=== PATIENT | female | born 1950 | race Caucasian/White ===

== ENCOUNTER → 2016-09-17 08:32 | Outpatient (CLI) | payer MEDICARE, MEDICAID ==
[2015-07-10 12:55] VITALS: BMI 22.8
[~2016-09-17 08:32] MED LIST: ASCORBIC ACID500 MG PO; BAYER CHEWABLE81 MG PO; CALCIUM 500 + D1 TAB PO; CYTOTEC200 MCG PO; FISH OIL 1,0001 CA1 PO; FLORASTOR250 MG PO; IMDUR30 MG OR; IMDUR60 MG; ISOSORBIDE MONO30 M1 PO; LEVAQUIN500 MG PO; LOTENSIN HCT 101 TAB PO; NEXIUM40 MG PO; NIASPAN1000 MG PO; NITROSTAT0.4 MG SL; NORVASC5 MG PO; OCUVITE TABLET1 TA1 PO; PLAVIX75 MG PO; PRAVACHOL40 MG PO; RANEXA1000 MG PO; RANEXA500 MG PO; SINGULAIR10 MG PO; TENORMIN25 MG PO; TOPROL XL25 MG PO; TOPROL XL50 MG PO; TRIGLIDE160 MG PO
== END | disposition home or self-care (01) ==
LOC: D.CT 08:00
DX: M79.604 Pain in right leg (principal)

== ENCOUNTER 2017-01-03 17:44 | Emergency (ER) | payer MEDICARE, MEDICAID ==
[2015-07-10 12:55] VITALS: BMI 22.8
[2017-01-03 18:27] LABS: BASOPHILS 0.3 % (0-2); EOSINOPHILS 0.4 % (0-7); HEMATOCRIT 36.9 % (36.0-48.0); HEMOGLOBIN 12.1 g/dL (12-16); IMMATURE GRANULOCYTES 0.2 % (0-5); LYMPHOCYTES 18.3 % (15-50); MCH 27.8 pg (26.0-34.0); MCHC 32.8 g/dL (31.0-37.0); MCV 84.8 fL (80.0-100.0); MEAN PLATELET VOLUME 10.4 fL (7.4-10.4); MONOCYTES 8.4 % (2-11); NEUTROPHILS 72.4 % (40-80); PLATELET COUNT 301 10x3/uL (130-400); RBC 4.35 10x6/uL (4.00-5.40); WBC 10.9 10x3/uL (4.8-10.8)
[2017-01-03 18:33] LABS: INR 1.02 (0.85-1.17); PROTIME 13.3 SECONDS (11.6-15.0)
[2017-01-03 18:34] LABS: APTT 40.2 SECONDS (22.8-39.4)
[2017-01-03 18:37] LABS: ALBUMIN 3.3 g/dL (3.4-5.0); ALKALINE PHOSPHATASE 148 U/L (46-116); ALT (SGPT) 17 U/L (10-68); BILIRUBIN - TOTAL 0.37 mg/dL (0.2-1.3); CALC OSMOLALITY 265 mosm/kg (275-300); CALCIUM 9.5 mg/dL (8.5-10.1); CARBON DIOXIDE 22.3 mmol/L (21.0-32.0); CHLORIDE - SERUM 100 mmol/L (98-107); CREATININE - SERUM 0.7 mg/dL (0.6-1.3); GLUCOSE 111 mg/dL (74-106); POTASSIUM - SERUM 3.5 mmol/L (3.5-5.1); SODIUM 133 mmol/L (136-145); UREA NITROGEN 9 mg/dL (7-18); eGFR NON AFRICAN AMERICAN 88 mL/min (90-120)
[2017-01-03 18:48] LABS: D-DIMER-QUANTITATIVE 2.59 ug/mLFEU (0.20-0.54)
[2017-01-03 18:50] LABS: CKMB 0.5 U/L (0.0-3.6); CREATINE KINASE 39 UL (21-215); PRO BNP 137 pg/mL (0-125)
[2017-01-03 18:51] LABS: TROPONIN-I < 0.017 ng/mL (0.000-0.060)
== END 2017-01-03 23:23 | disposition home or self-care (01) ==
LOC: D.ER 17:44
PROVIDERS: Family Medicine
DX: R07.9 Chest pain, unspecified (principal); K21.9 Gastro-esophageal reflux disease without esophagitis; I10 Essential (primary) hypertension; F17.200 Nicotine dependence, unspecified, uncomplicated; R00.0 Tachycardia, unspecified

== ENCOUNTER → 2017-11-19 17:36 | Outpatient (CLI) | payer MEDICARE, MEDICAID ==
[2015-07-10 12:55] VITALS: BMI 22.8
== END | disposition home or self-care (01) ==
LOC: D.MAMMO 11:15
DX: Z12.31 Encounter for screening mammogram for malignant neoplasm of breast (principal)

== ENCOUNTER → 2018-04-29 09:00 | Day surgery (SDC) | payer MEDICARE, MEDICAID ==
[2018-04-28 10:03] LABS: HEMATOCRIT 39.5 % (36.0-48.0); MCH 29.4 pg (26.0-34.0); MCHC 32.9 g/dL (31.0-37.0); MCV 89.4 fL (80.0-100.0); MEAN PLATELET VOLUME 9.6 fL (7.4-10.4); RBC 4.42 10x6/uL (4.00-5.40); RDW 13.7 % (11.5-14.5); WBC 11.4 10x3/uL (4.8-10.8)
[2018-04-28 10:10] LABS: CALC OSMOLALITY 275 mosm/kg (275-300); CALCIUM 9.2 mg/dL (8.5-10.1); CARBON DIOXIDE 26.6 mmol/L (21.0-32.0); CHLORIDE - SERUM 102 mmol/L (98-107); CREATININE - SERUM 0.8 mg/dL (0.6-1.3); GLUCOSE 103 mg/dL (74-106); POTASSIUM - SERUM 3.7 mmol/L (3.5-5.1); SODIUM 138 mmol/L (136-145); UREA NITROGEN 12 mg/dL (7-18); eGFR NON AFRICAN AMERICAN 75 mL/min (90-120)
[~2018-04-29] VITALS: Ht 160 cm; Wt 61.2 kg
[~2018-04-29 09:00] MED LIST changes: +BREO ELLIPTA 11 EACH INH; +CHANTIX 1 MG TAB1 MG PO; +CYCLOBENZAPRINE10 MG PO; +HYDROCODON-ACE1 EA10 PO; +HYDROCODONE; +LOTENSIN HCT 21 EACH PO; +NEURONTIN 300300 MG PO; +REQUIP0.25 MG PO; +VENTOLIN INH
[2018-04-29 09:38] VITALS: BP 133/75; Ht 160 cm; Wt 61.2 kg
--- NOTE | 2018-04-29 14:26 | OP ---
PATIENT NAME: NOEMY BRYANT MEDICAL RECORD: [id number] :49 LOCATION:[facility] ADMISSION DATE: SURGEON: MARY JOSHI MD DATE OF OPERATION: 04/29/2018 PREOPERATIVE DIAGNOSES: Impingement syndrome of the left shoulder with acromioclavicular arthritis and rotator cuff tear. POSTOPERATIVE DIAGNOSES: Impingement syndrome and acromioclavicular arthritis of the left shoulder. PROCEDURES: 1. Arthroscopic distal clavicle excision under separate incision -- 1 cm. 2. Arthroscopic subacromial decompression with acromioplasty and bursectomy. SURGEON: Mary Joshi MD ANESTHESIA: General. INTRAOPERATIVE COMPLICATIONS: None. SUMMARY OF PATHOLOGIC FINDINGS: The patient was indeed found to have substantial impingement with acromioclavicular arthritis. The glenohumeral joint itself was in relatively good condition. No rotator cuff tearing was seen from the articular side and only superficial abrasion was seen on the superficial side, excoriation of the coracoacromial ligament was noted. OPERATIVE SUMMARY IN DETAIL: After obtaining the appropriate preoperative orthopedic surgery consent as well as anesthetic consultation, evaluation and clearance, the patient was brought to the operating room and placed on the operating table in supine position. After general laryngeal mask administered, the patient was placed in the right lateral decubitus position. All pressure points were well padded to include down leg peroneal pad as well as axillary roll. The patient was held firmly to the operating table using vacuum pack suction system. Left upper extremity and shoulder were then prepped and draped in a routine sterile fashion. The arm was held in the Arthrex traction boom at 30 degrees of forward flexion, 30 degrees of abduction, and 10 pounds of traction laterally. Arthroscopy was established in the glenohumeral joint from a posterior portal. Anterior portal was established in the anterior safe interval. Diagnostic arthroscopy showed the patient have relatively well maintained glenohumeral joint without evidence of severe cellulitis labral tearing or biceps tendonitis. Attention was then turned to the subacromial space. Accessory lateral portal was created through which [place] tissue surface ablation system was utilized to denude the undersurface of the acromion of all soft tissue elements and release the coracoacromial ligament. Having completed this, a 5.0 barrel bur was used to perform acromioplasty at the level of acromioclavicular joint. Next, attention was turned to the distal clavicle, separate arthroscopic portal anteriorly was utilized to excise the distal clavicle 1 cm with a 5.0 barrel bur. Having completed this, all bursa was taken down anteriorly, laterally, posteriorly as well as superiorly. Rotator cuff was examined and found to be without tearing. Having completed this, arthroscopy portals were closed in routine interrupted fashion using 4-0 Prolene. Sterile dressings were applied. The patient was awakened and taken to the recovery room in stable condition. All final needle and sponge counts were correct. OPERATIVE REPORT [id number] NOEMY BRYANT [place]GO TRANSINT:[id number] Voice Confirmation ID: [id number] DOCUMENT ID: [id number] ADI JEAN, MARY BEYER at 1426 CC: [id number] DICTATION DATE: 04/29/18 1209 DESKTOP SUPPORT SPECIALIST: 04/29/18 1226 [facility] [place] [id number] [place] [id number]
== END | disposition home or self-care (01) ==
LOC: D.OPS 09:00 → D.PAN 12:00 → D.OPS 13:15
PROVIDERS: Anesthesiology
DX: M75.42 Impingement syndrome of left shoulder (principal); M13.812 Other specified arthritis, left shoulder; J44.9 Chronic obstructive pulmonary disease, unspecified; I25.10 Atherosclerotic heart disease of native coronary artery without angina pectoris; K21.9 Gastro-esophageal reflux disease without esophagitis; I10 Essential (primary) hypertension; E78.00 Pure hypercholesterolemia, unspecified; M81.0 Age-related osteoporosis without current pathological fracture; Z87.891 Personal history of nicotine dependence; Z88.5 Allergy status to narcotic agent; Z79.82 Long term (current) use of aspirin; Z79.2 Long term (current) use of antibiotics; Z79.02 Long term (current) use of antithrombotics/antiplatelets; Z79.891 Long term (current) use of opiate analgesic; Z79.52 Long term (current) use of systemic steroids; Z01.812 Encounter for preprocedural laboratory examination

== ENCOUNTER 2018-07-29 08:50 | Day surgery (SDC) | payer MEDICARE, MEDICAID ==
[2018-07-27 10:59] LABS: HEMATOCRIT 40.6 % (36.0-48.0); HEMOGLOBIN 13.4 g/dL (12-16); MCH 29.2 pg (26.0-34.0); MCV 88.5 fL (80.0-100.0); MEAN PLATELET VOLUME 9.5 fL (7.4-10.4); RBC 4.59 10x6/uL (4.00-5.40); RDW 13.4 % (11.5-14.5); WBC 8.4 10x3/uL (4.8-10.8)
[~2018-07-29] VITALS: Ht 160 cm; Wt 59.0 kg
[~2018-07-29 08:50] MED LIST changes: +ALBUTEROL SULF8.5 GM INH; +ALENDRONATE SOD40 MG PO; -HYDROCODONE; +VALIUM10 MG PO
[2018-07-29] MEDS ORDERED: MYSOLINE 50 MG50 MG PO (10:17)
[2018-07-29] MEDS ORDERED: ALENDRONATE TAB 70M PO (10:17)
[2018-07-29] MEDS ORDERED: CYTOTEC200 MCG PO (10:18)
[2018-07-29 10:19] VITALS: BP 123/56; Ht 160 cm; Wt 59.0 kg
[2018-07-29] MEDS ORDERED: HYDROCODON-ACE1 EA10 PO (12:01)
--- NOTE | 2018-07-29 14:51 | NUR ---
1330 IV DC'D. CATHETER INTACT. NO BLEEDING AT SITE. BANDAID APPLIED.
--- NOTE | 2018-07-29 17:13 | OP ---
PATIENT NAME: NOEMY BRYANT MEDICAL RECORD: [id number] :49 LOCATION:[facility] ADMISSION DATE: SURGEON: MARY JOSHI MD DATE OF OPERATION: 07/29/2018 PREOPERATIVE DIAGNOSES: 1. Severe biceps tendinitis - recalcitrant. 2. Recurrent impingement syndrome. POSTOPERATIVE DIAGNOSES: 1. Severe biceps tendinitis - recalcitrant. 2. Recurrent impingement syndrome. PROCEDURE: 1. Arthroscopic biceps tenotomy of the left shoulder. 2. Arthroscopic subacromial decompression with acromioplasty and bursectomy. SURGEON: Mary Joshi MD ANESTHESIA: General. INTRAOPERATIVE COMPLICATIONS: None. SUMMARY OF PATHOLOGIC FINDINGS: The patient had substantial recurrent synovitis. Thusly, the acromion was taken up higher, rotator cuff attritional tearing was noted, but no full thickness rotator cuff tear was seen. The patient did have severe biceps tendinitis as predicted for the preoperative MRI. OPERATIVE SUMMARY IN DETAIL: After obtaining the appropriate preoperative orthopedic surgery consent as well as anesthetic consultation, evaluation and clearance, the patient was brought to the operating room and placed on the operating table in supine position. After general laryngeal mask airway was administered, the patient was placed in right lateral decubitus position. All pressure points were well-padded to include down leg peroneal pad as well as the axillary roll. The patient was held firmly to the operating table using the vacuum pack suction system. Left upper extremity and shoulder were then prepped and draped in routine sterile fashion. The arm was held in the Arthrex traction boom in 30 degrees of forward flexion, 30 degrees of abduction, 10 pounds of traction laterally. Arthroscopy was established in the glenohumeral joint from the consumer lender portal. Anterior portal was established from the anterior safe interval. 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 The [place] tissue ablation system was utilized to perform a biceps tenotomy at the bicipital labral junction. Having completed this, attention turned to subacromial space. While in the subacromial space, the arthroscopic tissue ablation system was utilized to release the reformed coracoacromial ligament, which was quite thickened, somewhat strangely enough and the undersurface of the acromion was denuded of all soft tissue elements and then a subacromial decompression was performed at the level of the acromioclavicular joint, which had already been taken down, the AC joint that is. All bursa was taken down. The rotator cuff was thoroughly inspected. There were some attritional tearing of the rotator cuff fibers; however, none of it was full thickness. Having completed this, arthroscopy portals were closed in routine interrupted fashion using 4-0 Prolene. Sterile dressings were applied. OPERATIVE REPORT [id number] NOEMY BRYANT The patient was awakened, taken to recovery room in stable condition. All final needle and sponge counts were correct. TRANSINT:[id number] Voice Confirmation ID: [id number] DOCUMENT ID: [id number] ADI JEAN, MARY BEYER at 1713 CC: [id number] DICTATION DATE: 07/29/18 1204 DIRECTOR OF VIDEO ANALYTICS: 07/29/18 1314 [facility] 07/29/18 [place] [id number] [place] [address]
== END 2018-07-29 14:15 | disposition home or self-care (01) ==
LOC: D.OPS 08:50 → D.PAN 14:50 → D.OPS 14:50 → D.PAN 17:15
PROVIDERS: Anesthesiology; ATTEND Orthopaedic Surgery
DX: M75.22 Bicipital tendinitis, left shoulder (principal); M75.42 Impingement syndrome of left shoulder; M65.812 Other synovitis and tenosynovitis, left shoulder; Z01.812 Encounter for preprocedural laboratory examination

== ENCOUNTER 2018-11-29 10:08 | Emergency (ER) | payer MEDICARE, MEDICAID ==
[~2018-11-29] VITALS: Ht 160 cm; Wt 63.6 kg
[~2018-11-29 10:08] MED LIST changes: +ALENDRONATE TAB 70M PO; +MYSOLINE 50 MG50 MG PO
[2018-11-29 10:09] VITALS: Ht 160 cm; Wt 63.6 kg
[2018-11-29] MEDS ORDERED: CYCLOBENZAPRINE10 MG PO (10:11)
[2018-11-29] MEDS ORDERED: VOLTAREN75 MG PO (11:16)
[2018-11-29] MEDS ORDERED: BACLOFEN20 M1 PO (11:16)
[2018-11-29 11:43] VITALS: BP 142/88
== END 2018-11-29 12:10 | disposition home or self-care (01) ==
LOC: D.ER 10:08
DX: M54.5 Low back pain (principal)

== ENCOUNTER → 2018-12-10 20:52 | Outpatient (CLI) | payer MEDICARE, MEDICAID ==
[2018-11-29 10:09] VITALS: BMI 24.8
[~2018-12-10 20:52] MED LIST changes: +BACLOFEN20 M1 PO; +VOLTAREN75 MG PO
[2018-12-10 21:06] LABS: APPEARANCE SL CLDY (CLEAR); BILIRUBIN NEGATIVE (NEGATIVE); COLOR YELLOW (YELLOW); GLUCOSE NEGATIVE (NEGATIVE); KETONE NEGATIVE (NEGATIVE); NITRITE NEGATIVE (NEGATIVE); PROTEIN TRACE mg/dL (NEGATIVE); UROBILINOGEN NORMAL (NORMAL)
[2018-12-10 21:07] LABS: BACTERIA FEW /hpf (NONE SEEN); RED CELLS - URINE 0-5 /hpf (0-5)
== END | disposition home or self-care (01) ==
LOC: D.LABREF 20:52
PROVIDERS: ATTEND Family Medicine
DX: N39.0 Urinary tract infection, site not specified (principal); R10.9 Unspecified abdominal pain

== ENCOUNTER → 2019-04-15 15:53 | Outpatient (CLI) | payer MEDICARE, MEDICAID ==
[2018-11-29 10:09] VITALS: BMI 24.8
== END | disposition home or self-care (01) ==
LOC: D.LABREF 15:53
PROVIDERS: ATTEND Urology
DX: R31.9 Hematuria, unspecified (principal)

== ENCOUNTER → 2019-04-28 07:50 | Outpatient (CLI) | payer MEDICARE, MEDICAID ==
[2018-11-29 10:09] VITALS: BMI 24.8
[~2019-04-28 07:50] MED LIST changes: +ALENDRONATE PO; -ALENDRONATE SOD40 MG PO; +AMBIEN10 MG PO; +Fosamax; +MEDROL DOSE PACK4 MG PO; +PROTONIX40 MG PO; +STERAPRED DS 1010 MG PO; +VIBRAMYCIN 100100 MG PO
== END | disposition home or self-care (01) ==
LOC: D.CT 07:50
PROVIDERS: ATTEND Urology
DX: R31.21 Asymptomatic microscopic hematuria (principal)

== ENCOUNTER 2019-06-07 05:10 | Day surgery (SDC) | payer MEDICARE, MEDICAID ==
[~2019-06-07] VITALS: Ht 160 cm; Wt 62.1 kg
[2019-06-07 05:48] LABS: HEMATOCRIT 42.8 % (36.0-48.0); MCHC 32.7 g/dL (31.0-37.0); MCV 88.6 fL (80.0-100.0); MEAN PLATELET VOLUME 9.7 fL (7.4-10.4); RBC 4.83 10x6/uL (4.00-5.40); RDW 14.1 % (11.5-14.5)
[2019-06-07 06:30] LABS: CALC OSMOLALITY 280 mosm/kg (275-300); CALCIUM 9.5 mg/dL (8.5-10.1); CARBON DIOXIDE 27.1 mmol/L (21.0-32.0); CHLORIDE - SERUM 104 mmol/L (98-107); CREATININE - SERUM 0.8 mg/dL (0.6-1.3); GLUCOSE 109 mg/dL (74-106); POTASSIUM - SERUM 4.2 mmol/L (3.5-5.1); SODIUM 140 mmol/L (136-145); UREA NITROGEN 14 mg/dL (7-18); eGFR NON AFRICAN AMERICAN 75 mL/min (90-120)
[2019-06-07 06:39] VITALS: Ht 160 cm; Wt 62.1 kg
--- NOTE | 2019-06-07 09:13 | NUR ---
0907 AWAKE & ALERT. DRESSED. GIVEN DISCHARGE INFORMATION INCLUDING: MED REC, RTC APPT., [facility] D/C INSTRUCTIONS, & POST CYSTOSCOPY & RIMSO D/C INSTRUCTIONS. PT VOICED UNDERSTANDING. TO PRIVATE CAR PER WHEELCHAIR. HOME WITH DAUGHTER, ANN. AdamsDe GIPSONER Ace
--- NOTE | 2019-06-07 12:08 | OP ---
PATIENT NAME: NOEMY BRYANT MEDICAL RECORD: [id number] :49 LOCATION:D.[facility] ADMISSION DATE: SURGEON: SERAFIN KONG MD DATE OF OPERATION: 06/07/2019 SURGEON: Serafin Kong MD ANESTHESIA: TIVA by Adeel Zuniga MD DIAGNOSIS: Interstitial cystitis. PROCEDURES: Cystoscopy, hydrodistention and intravesical Rimso instillation. FINDINGS: On cystoscopy, bilateral single ureteral orifices, no bladder tumors, diffusely inflamed bladder. BLOOD LOSS: None. CLINICAL HISTORY: This is a 68-year-old female being investigated for microscopic hematuria. She had a CT scan on 04/28/2019, which was normal. She has also evidence of suprapubic and left lower quadrant tenderness along with vaginal tenderness. There is daytime urinary frequency every 45 minutes with nocturia times 2 to 3. Drinking tea makes her symptoms worse. She does report symptoms suggestive of stress incontinence also, but when I examined her she did not show any stress incontinence. She has most likely interstitial cystitis as the cause of microscopic hematuria. She comes now to have cystoscopy done. SHE IS ALLERGIC TO MORPHINE AND PROPRANOLOL. She was given ampicillin and sulbactam online health and fitness coach to the OR. DESCRIPTION OF PROCEDURE: The patient was given IV sedation. She was placed into lithotomy position and prepped and draped. A 17-Macedonian cystoscope with 30-degree lens was used for visualization. Findings are as outlined above. While we are performing cystoscopy, I allowed the bladder to overfill to about 600 mL of capacity. This was held in for about 2 minutes. The bladder was then emptied and the scope removed. Using a red rubber catheter, we instilled 50 mL of Rimso solution into the bladder. This will be kept in the patient for about 15 minutes and then she will void it out. I will see the patient in followup in 2 weeks' time. TRANSINT:[id number] Voice Confirmation ID: [id number] DOCUMENT ID: [id number] SERAFIN KONG MD at 1208 CC: [id number] DICTATION DATE: 06/07/19 08 CANAL STRUCTURE OPERATOR: 06/07/[address] [facility] 06/07/19 [place] [address]
== END 2019-06-07 09:07 | disposition home or self-care (01) ==
LOC: D.OPS 05:10 → D.PAN 07:30 → D.OPS 08:00
PROVIDERS: Anesthesiology; ATTEND Urology
DX: N30.10 Interstitial cystitis (chronic) without hematuria (principal); J44.9 Chronic obstructive pulmonary disease, unspecified; I25.10 Atherosclerotic heart disease of native coronary artery without angina pectoris; R06.00 Dyspnea, unspecified

== ENCOUNTER → 2019-06-28 17:44 | Outpatient (CLI) | payer MEDICARE, MEDICAID ==
[2019-06-07 06:39] VITALS: BMI 24.3
== END | disposition home or self-care (01) ==
LOC: D.LABREF 17:44
PROVIDERS: ATTEND Urology
DX: R82.90 Unspecified abnormal findings in urine (principal); R31.9 Hematuria, unspecified

== ENCOUNTER 2020-06-07 10:00 | Outpatient (CLI) | payer MEDICARE, MEDICAID ==
[2019-06-07 06:39] VITALS: BMI 24.3
== END 2020-06-07 23:59 | disposition home or self-care (01) ==
LOC: D.MAMMO 10:00
PROVIDERS: ATTEND Family Medicine
DX: Z12.31 Encounter for screening mammogram for malignant neoplasm of breast (principal)